=== PATIENT | female | born 1950 | race Caucasian/White ===

== ENCOUNTER 2024-02-02 14:13 | Outpatient (REF) | payer OTHER, SELFPAY ==
[2024-02-02 16:07] LABS: C Reactive Protein 0.14 mg/dL (< or = 0.50)
[2024-02-02 16:26] LABS: Erythrocyte Sedimentation Rate 6 MM/HR (0-20)
== END 2024-02-02 14:14 | disposition home or self-care (01) ==
LOC: HO.LAB 14:13
PROVIDERS: PCP Internal Medicine; Visit Provider Registered Nurse
DX: G44.209 Tension-type headache, unspecified, not intractable (principal)
CPT/HCPCS: 36415; 85652; 86140